=== PATIENT | female | born 1950 | race African-American/Black ===

== ENCOUNTER 2018-02-06 14:15 | Emergency (ER) | payer BC ==
[2018-02-06] MEDS ORDERED: DIPHTH,PERTUSS(ACELL),TET 0.5 ML DISP.SYRIN IM ONE (14:20)
--- NOTE | 2018-02-06 14:20 | PDOC ---
Rapid Medical Evaluation Chief Complaint: Injury Time Seen by Provider: 02/06/18 14:18 Medical Evaluation: Allergies Allergy/AdvReac Type Severity Reaction Status Date / Time lisinopril Allergy Swelling Verified 02/15/12 14:10 metformin Allergy Vomiting Verified 02/15/12 14:10 02/06/18 14:19 67 year old female with IDDM, HTN who cut her left 2nd finger while cooking just prior to arrival. On baby ASA, no other antiplatelets/anticoagulants. -Boostrix -To FT for further evaluation 02/06/18 14:20 Discharge Disposition - Referrals Referrals: Prabhjot Faulkner MD [Primary Care Provider] - - Patient Instructions - Post Discharge Activity
[2018-02-06 14:21] VITALS: BP 160/79; PULSE 100; TEMP 98; BMI 33.9
--- NOTE | 2018-02-06 14:29 | PDOC ---
History of Present Illness - General Chief Complaint: Injury Stated Complaint: LEFT HAND INJURY Time Seen by Provider: 02/06/18 14:18 History Source: Patient Exam Limitations: No Limitations - History of Present Illness Initial Comments: 02/06/18 14:37 Pt. is a 67 y/o F, PMH IDDM, HTN, who presents to the ED with a cut to her L second finger. Pt. states that she was cutting salmon when the knife slipped and cut her finger. She was concerned that she needed stitches. She does not remember the date of her last tetanus shot. Denies numbness and tingling, weakness to the finger, decreased ROM. Past History - Travel Traveled outside of the country in the last 30 days: No Close contact w/someone who was outside of country & ill: No - Past Medical History Allergies/Adverse Reactions: Allergies Allergy/AdvReac Type Severity Reaction Status Date / Time lisinopril Allergy Swelling Verified 02/15/12 14:10 metformin Allergy Vomiting Verified 02/15/12 14:10 Home Medications: Ambulatory Orders Amlodipine Besylate [Norvasc] 10 mg PO DAILY 02/15/12 Aspirin [Aspirin EC] 81 mg PO DAILY 02/15/12 Metoprolol Tartrate [Lopressor -] 75 mg PO DAILY 02/15/12 Sitagliptin Phosphate [Januvia] 100 mg PO DAILY 02/15/12 Insulin Detemir [Levemir Flextouch] 100 unit SQ ASDIR 02/06/18 Insulin Lispro [Humalog] 100 unit SQ ASDIR 02/06/18 COPD: No Diabetes: Yes Disorders: Yes HTN: Yes - Immunization History Immunization Up to Date: Yes - Suicide/Smoking/Psychosocial Hx Smoking Status: No Smoking History: Never smoked Number of Cigarettes Smoked Daily: 0 Hx Alcohol Use: No Drug/Substance Use Hx: No Review of Systems - Review of Systems Able to Perform ROS?: Yes Is the patient limited Italian proficient: No *Physical Exam - Vital Signs Last Vital Signs Temp Pulse Resp BP Pulse Ox 98.0 F 100 H 20 160/79 100 02/06/18 14:18 02/06/18 14:18 02/06/18 14:18 02/06/18 14:18 02/06/18 14:18 - Physical Exam Comments: 02/08/18 11:30 Well developed, well nourished. Awake and alert. No acute distress. HEENT: Normocephalic, atraumatic. PERRLA, EOMI. No conjunctival pallor. Sclera are non- icteric. Moist mucous membranes. Oropharynx is clear. NECK: Supple. Full ROM. No JVD. Carotid pulses 2+ and symmetric, without bruits. No thyromegaly. No lymphadenopathy. CARDIOVASCULAR: Regular rate and rhythm. No murmurs, rubs, or gallops. Distal pulses are 2+ and symmetric. PULMONARY: No evidence of respiratory distress. Lungs clear to auscultation bilaterally. No wheezing, rales or rhonchi. ABDOMINAL: Soft. Non-tender. Non-distended. No rebound or guarding. No organomegaly. Normoactive bowel sounds. MUSCULOSKELETAL Normal range of motion at all joints. No bony deformities or tenderness. No CVA tenderness. EXTREMITIES: No cyanosis. No clubbing. No edema. No calf tenderness. SKIN: Warm and dry. Normal capillary refill. No rashes. No jaundice. NEUROLOGICAL: Alert, awake, appropriate. Cranial nerves 2-12 intact. No deficits to light touch and temperature in face, upper extremities and lower extremities. No motor deficits in the in face, upper extremities and lower extremities. Normoreflexic in the upper and lower extremities. Normal speech. Toes are down- going bilaterally. Gait is normal without ataxia. PSYCHIATRIC: Cooperative. Good eye contact. Appropriate mood and affect. Procedures - Laceration/Wound Repair Left Distal 2nd digit Wound Length: 2.6 to 5.0 cm Wound Explored: clean Wound's Depth, Shape: superficial Irrigated w/ Saline: Yes Betadine Prep: Yes Anesthesia: 1% Lidocaine *DC/Admit/Observation/Transfer Diagnosis at time of Disposition: Laceration - Discharge Dispostion Disposition: HOME Condition at time of disposition: Stable Admit: No - Referrals Referrals: Prabhjot Faulkner MD [Primary Care Provider] - - Patient Instructions Printed Discharge Instructions: DI for Laceration Repair Additional Instructions: You had your cut repaired today. You had stitches placed. These need to come out in 7-10 days. Please return to the emergency department to have your stitches removed. Please keep the hand clean and dry. Do not soak it in water. Wear a glove when showering or washing dishes. You may put bacitracin on the site once a day. Your tetanus shot was updated today. Return to the emergency department sooner if you have signs of infection including fevers, redness or discharge from the site, or have any changes in your symptoms. - Post Discharge Activity
== END 2018-02-06 15:37 | disposition home or self-care (01) ==
LOC: JERFT 14:15
PROC: 3E0234Z Introduction of Serum, Toxoid and Vaccine into Muscle, Percutaneous Approach (ICD-10-PCS; principal; 2018-02-06)
PROC: 0HQGXZZ Repair Left Hand Skin, External Approach (ICD-10-PCS; 2018-02-06)
DX: S61.211A Laceration without foreign body of left index finger without damage to nail, initial encounter (principal); W26.0XXA Contact with knife, initial encounter; Y93.G3 Activity, cooking and baking; Y92.030 Kitchen in apartment as the place of occurrence of the external cause; Y99.8 Other external cause status; I10 Essential (primary) hypertension; E11.9 Type 2 diabetes mellitus without complications; Z79.4 Long term (current) use of insulin; Z79.84 Long term (current) use of oral hypoglycemic drugs; Z79.82 Long term (current) use of aspirin
CPT/HCPCS: 12001; 90471; 90715; 99281-25

== ENCOUNTER 2018-02-13 11:50 | Emergency (ER) | payer BC ==
[2018-02-13 12:01] VITALS: BP 149/70; PULSE 94; TEMP 98.5; BMI 33.9
--- NOTE | 2018-02-13 14:17 | PDOC ---
Suture Removal/Wound Check HPI - History of Present Illness History Source: Yes: Patient Exam Limitations: Yes: No Limitations - Onset of Previous Treatment Comment:: 02/13/18 14:18 The patient is a 67-year-old female, with a significant past medical history of IDDM, HTN, who presents to the ED for suture removal today. The patient visited the ED on 02/06 after sustaining a cut to her left second digit while cutting salmon. Six sutures were removed and dermabond was applied to the area; wound appears to be healing well. The patient denies having any other symptoms or injuries at this time. Allergies: glipizide, metformin, and lisinopril Social History: No reported tobacco, alcohol, or drug use Surgical History: None reported PCP: Dr. Prabhjot Faulkner <Beata Chaidez - Last Filed: 02/13/18 14:22> - History of Present Illness History Source: Yes: Patient Exam Limitations: Yes: No Limitations Treated at: [facility] Date of Last ED visit: 02/06/18 - Previous ED Treatment Type of procedure performed on last visit: Yes: Laceration Repair Tetanus Immunization: Yes: Up to Date Antibiotics Prescribed: No <Janel Montez - Last Filed: 02/13/18 14:33> - History of Present Illness Chief Complaint: Suture/Staple Removal(Here) Stated Complaint: SUTURE REMOVAL Time Seen by Provider: 02/13/18 13:43 Past History <Beata Chaidez - Last Filed: 02/13/18 14:22> - Past Medical History COPD: No Diabetes: Yes Disorders: Yes HTN: Yes - Immunization History Immunization Up to Date: Yes - Suicide/Smoking/Psychosocial Hx Smoking Status: No Smoking History: Never smoked Number of Cigarettes Smoked Daily: 0 Information on smoking cessation initiated: No Hx Alcohol Use: No Drug/Substance Use Hx: No Substance Use Type: None <Janel Montez - Last Filed: 02/13/18 14:33> - Past Medical History Allergies/Adverse Reactions: Allergies Allergy/AdvReac Type Severity Reaction Status Date / Time glipizide Allergy Verified 02/13/18 11:55 lisinopril Allergy Swelling Verified 02/13/18 11:55 metformin Allergy Vomiting Verified 02/13/18 11:55 Home Medications: Ambulatory Orders Amlodipine Besylate [Norvasc] 10 mg PO DAILY 02/15/12 Aspirin [Aspirin EC] 81 mg PO DAILY 02/15/12 Metoprolol Tartrate [Lopressor -] 75 mg PO DAILY 02/15/12 Sitagliptin Phosphate [Januvia] 100 mg PO DAILY 02/15/12 Insulin Detemir [Levemir Flextouch] 100 unit SQ ASDIR 02/06/18 Insulin Lispro [Humalog] 100 unit SQ ASDIR 02/06/18 Suture Removal/Wound Check PE - Physical Exam Comments: 02/13/18 14:20 GENERAL: Well-appearing, well-nourished. No apparent distress. HEENT: Normocephalic, atraumatic. PERRL, EOM intact. CARDIOVASCULAR: Normal S1, S2. Regular rate and rhythm. PULMONARY: Clear to auscultation bilaterally. EXTREMITIES: Normal ROM in all four extremities. No gross deformities. SKIN: Warm, dry. LEFT SECOND DIGIT: Wound at edges appeared to be healed well. No evidence of infection. No erythema or edema. No dehiscence. NEUROLOGICAL: No focal neurological deficits. <Beata Chaidez - Last Filed: 02/13/18 14:22> *Review of Systems - Review of Systems Able to Perform ROS?: Yes Comments:: 02/13/18 14:20 CONSTITUTIONAL: Absent: fever, no chills, no fatigue EYES: Absent: visual changes ENT: Absent: ear pain, no sore throat CARDIOVASCULAR: Absent: chest pain, no palpitations RESPIRATORY: Absent: cough, no SOB GI: Absent: abdominal pain, no nausea, no vomiting, no constipation, no diarrhea GENITOURINARY: Absent: dysuria, no frequency, no hematuria MUSKULOSKELETAL: Absent: back pain, no arthralgia, no myalgia SKIN: Present: sutures in place on left second digit Absent: rash NEURO: Absent: headache <Beata Chaidez - Last Filed: 02/13/18 14:22> Medical Decision Making - Medical Decision Making 02/13/18 14:32 A/P:: Patient here for suture removal there is no erythema edema secondary signs of infection. 4 sutures removed without difficulty, patient to follow-up as needed. <Janel Montez - Last Filed: 02/13/18 14:33> *DC/Admit/Observation/Transfer - Attestations Scribe Attestion: 02/13/18 14:21 Documentation prepared by Beata Chaidez, acting as medical resident for Janel Montez NP. <Beata Chaidez - Last Filed: 02/13/18 14:22> - Discharge Dispostion Admit: No <Janel Montez - Last Filed: 02/13/18 14:33> Diagnosis at time of Disposition: Visit for suture removal - Discharge Dispostion Disposition: HOME Condition at time of disposition: Stable - Referrals Referrals: Prabhjot Faulkner MD [Primary Care Provider] - - Patient Instructions Additional Instructions: PLease try to keep area as dry as possible, follow up as needed. If any increased redness swelling or signs of infection return to ER - Post Discharge Activity Forms/Work/School Notes: Back to Work
== END 2018-02-13 15:01 | disposition home or self-care (01) ==
LOC: JERFT 11:50
DX: Z48.02 Encounter for removal of sutures (principal); I10 Essential (primary) hypertension; E11.9 Type 2 diabetes mellitus without complications; Z79.4 Long term (current) use of insulin; Z79.84 Long term (current) use of oral hypoglycemic drugs
CPT/HCPCS: 99281-25

== ENCOUNTER 2023-07-01 11:14 | Inpatient (IN) | payer BC ==
[2023-07-01 11:23] VITALS: BMI 33.9
[2023-07-01] MEDS ORDERED: SODIUM CHLORIDE 2,858 ML IV ONE (12:44)
[2023-07-01] MEDS ORDERED: CEFTRIAXONE 1,000 MG in DEXTROSE 5%-WATER - 50 ML IVPB ONE (12:46)
[2023-07-01 13:46] LABS: BASO % 1.1 % (0-2.0); EOS % 1.1 % (0-4.5); HEMATOCRIT 44.9 % (32.4-45.2); HEMOGLOBIN 14.8 GM/dL (10.7-15.3); LYMPH % 21.9 % (8-40); MCH 26.6 pg (25.7-33.7); MEAN CELL VOLUME 80.8 fl (80-96); MEAN PLT VOLUME 8.5 fl (7.5-11.1); MONO % 12.8 % (3.8-10.2); NEUT % 63.1 % (42.8-82.8); PLATELET COUNT 344 10^3/uL (134-434); RBC 5.56 M/mm3 (3.60-5.2); RDW 15.7 % (11.6-15.6)
[2023-07-01 14:00] LABS: INR 1.07 (0.83-1.09); PROTHROMBIN TIME (PATIENT) 12.4 SEC (9.7-13.0)
[2023-07-01 14:02] LABS: ACTIVATED PTT 29.9 SECONDS (25.2-36.5)
[2023-07-01 14:03] LABS: VENOUS BASE EXCESS 1.3 mmol/L (-2-2); VENOUS O2 SATURATION 65.8 % (70-80); VENOUS PCO2 41.8 mmHg (38-52); VENOUS PH 7.413 (7.310-7.410)
[2023-07-01 14:43] LABS: POTASSIUM 4.2 mmol/L (3.5-5.1)
[2023-07-01 14:44] LABS: CALCIUM 10.5 mg/dL (8.5-10.1)
[2023-07-01 14:45] LABS: ALBUMIN 3.4 g/dl (3.4-5.0)
[2023-07-01 14:47] LABS: BLOOD UREA NITROGEN 19.3 mg/dL (7-18)
[2023-07-01 14:48] LABS: CREATININE 0.9 mg/dL (0.55-1.3)
[2023-07-01 14:50] LABS: TOT PROT 7.4 g/dl (6.4-8.2)
[2023-07-01 14:51] LABS: BILIRUBIN,TOTAL 0.7 mg/dL (0.2-1)
[2023-07-01] MEDS ORDERED: CEFTRIAXONE 1 GM/50 ML BAG ONE (15:31)
[2023-07-01 16:07] LABS: URINE APPEARANCE CLEAR; URINE BILIRUBIN NEGATIVE (NEGATIVE); URINE COLOR YELLOW; URINE GLUCOSE (UA) NEGATIVE (NEGATIVE); URINE KETONE 1+ (NEGATIVE); URINE LEUK ESTERASE NEGATIVE (NEGATIVE); URINE NITRITE NEGATIVE (NEGATIVE); URINE PROTEIN NEGATIVE (NEGATIVE)
[2023-07-01] MEDS ORDERED: DOCUSATE SODIUM 100 MG CAPSULE (FP) PO PRN (20:19)
[2023-07-01] MEDS: INSULIN SLIDING SCALE (NOVOLOG) 1 VIAL SQ SCH (23:08)
[2023-07-02] MEDS ORDERED: ACETAMINOPHEN 1000 MG/100 ML BAG IVPB PRN (02:56)
[2023-07-02] MEDS: INSULIN SLIDING SCALE (NOVOLOG) 1 VIAL SQ SCH ×4 (06:06→21:24)
[2023-07-02 10:17] LABS: BASO % 0.8 % (0-2.0); EOS % 1.9 % (0-4.5); HEMATOCRIT 40.7 % (32.4-45.2); MCH 26.4 pg (25.7-33.7); MEAN CELL VOLUME 82.4 fl (80-96); MEAN PLT VOLUME 8.4 fl (7.5-11.1); NEUT % 66.3 % (42.8-82.8); PLATELET COUNT 294 10^3/uL (134-434); RBC 4.93 M/mm3 (3.60-5.2); RDW 15.6 % (11.6-15.6); WHITE BLOOD COUNT 6.2 K/mm3 (4.0-10.0)
[2023-07-02 10:34] LABS: POTASSIUM 4.1 mmol/L (3.5-5.1)
[2023-07-02] MEDS: METOPROLOL TARTRATE 25 MG TABLET (FP) PO SCH (10:34)
[2023-07-02] MEDS: HYDROCHLOROTHIAZIDE 25 MG TABLET (FP) PO SCH (10:34)
[2023-07-02] MEDS: ASPIRIN COATED 81 MG TABLET.EC PO SCH (10:34)
[2023-07-02] MEDS: PREGABALIN 75 MG CAPSULE PO SCH ×2 (10:34→21:24)
[2023-07-02 10:38] LABS: CALCIUM 9.4 mg/dL (8.5-10.1)
[2023-07-02 10:39] LABS: BLOOD UREA NITROGEN 10.8 mg/dL (7-18); MAGNESIUM 1.8 mg/dL (1.8-2.4)
[2023-07-02 10:42] LABS: CREATININE 0.6 mg/dL (0.55-1.3); PHOSPHOROUS 3.9 mg/dL (2.5-4.9)
[2023-07-02] MEDS: INSULIN (LEVEMIR) 100 UNITS/ML UNITS SQ SCH (21:25)
[2023-07-03] MEDS: INSULIN SLIDING SCALE (NOVOLOG) 1 VIAL SQ SCH ×4 (06:06→21:42)
[2023-07-03] MEDS: INSULIN (LEVEMIR) 100 UNITS/ML UNITS SQ SCH ×2 (06:40→21:36)
[2023-07-03] MEDS: METOPROLOL TARTRATE 25 MG TABLET (FP) PO SCH (10:18)
[2023-07-03] MEDS: ASPIRIN COATED 81 MG TABLET.EC PO SCH (10:18)
[2023-07-03] MEDS: PREGABALIN 75 MG CAPSULE PO SCH ×2 (10:18→21:36)
[2023-07-03] MEDS: HYDROCHLOROTHIAZIDE 25 MG TABLET (FP) PO SCH (10:18)
[2023-07-03] MEDS ORDERED: INSULIN (LEVEMIR) 100 UNITS/ML UNITS SQ ONE (21:21)
[2023-07-03] MEDS: HEPARIN NA (PORCINE) 5,000 UNITS/ML 1ML VIAL SQ SCH (21:36)
[2023-07-04] MEDS: INSULIN (LEVEMIR) 100 UNITS/ML UNITS SQ SCH ×2 (06:06→21:50)
[2023-07-04] MEDS: INSULIN SLIDING SCALE (NOVOLOG) 1 VIAL SQ SCH ×4 (06:06→21:52)
[2023-07-04] MEDS: METOPROLOL TARTRATE 25 MG TABLET (FP) PO SCH (10:52)
[2023-07-04] MEDS: PREGABALIN 75 MG CAPSULE PO SCH ×2 (10:52→21:49)
[2023-07-04] MEDS: ASPIRIN COATED 81 MG TABLET.EC PO SCH (10:53)
[2023-07-04] MEDS: HYDROCHLOROTHIAZIDE 25 MG TABLET (FP) PO SCH (10:53)
[2023-07-04] MEDS: HEPARIN NA (PORCINE) 5,000 UNITS/ML 1ML VIAL SQ SCH ×2 (10:53→21:49)
[2023-07-05] MEDS: INSULIN SLIDING SCALE (NOVOLOG) 1 VIAL SQ SCH ×4 (06:22→21:42)
[2023-07-05] MEDS: INSULIN (LEVEMIR) 100 UNITS/ML UNITS SQ SCH ×2 (06:22→21:41)
[2023-07-05] MEDS: ASPIRIN COATED 81 MG TABLET.EC PO SCH (09:19)
[2023-07-05] MEDS: HEPARIN NA (PORCINE) 5,000 UNITS/ML 1ML VIAL SQ SCH ×2 (09:20→21:40)
[2023-07-05] MEDS: METOPROLOL TARTRATE 25 MG TABLET (FP) PO SCH (09:20)
[2023-07-05] MEDS: HYDROCHLOROTHIAZIDE 25 MG TABLET (FP) PO SCH (09:20)
[2023-07-05] MEDS: PREGABALIN 75 MG CAPSULE PO SCH ×2 (09:20→21:40)
[2023-07-06] MEDS: INSULIN SLIDING SCALE (NOVOLOG) 1 VIAL SQ SCH ×4 (06:52→22:01)
[2023-07-06] MEDS: INSULIN (LEVEMIR) 100 UNITS/ML UNITS SQ SCH ×2 (06:53→22:00)
[2023-07-06] MEDS: HEPARIN NA (PORCINE) 5,000 UNITS/ML 1ML VIAL SQ SCH ×2 (10:46→21:59)
[2023-07-06] MEDS: HYDROCHLOROTHIAZIDE 25 MG TABLET (FP) PO SCH (10:46)
[2023-07-06] MEDS: POLYETHYLENE GLYCOL (HEALTHYLAX) 3350 17 GM PACKET PO SCH (10:46)
[2023-07-06] MEDS: ASPIRIN COATED 81 MG TABLET.EC PO SCH (10:46)
[2023-07-06] MEDS: METOPROLOL TARTRATE 25 MG TABLET (FP) PO SCH (10:46)
[2023-07-06] MEDS: PREGABALIN 75 MG CAPSULE PO SCH ×2 (10:46→22:02)
[2023-07-06] MEDS: ACETAMINOPHEN 325 MG TABLET (FP) PO PRN (23:07)
[2023-07-07] MEDS: INSULIN SLIDING SCALE (NOVOLOG) 1 VIAL SQ SCH ×4 (06:28→21:14)
[2023-07-07] MEDS: INSULIN (LEVEMIR) 100 UNITS/ML UNITS SQ SCH ×2 (06:32→21:14)
[2023-07-07] MEDS ORDERED: INSULIN (NOVOLOG) ASPART 100 UNITS/ML 10ML VIAL ONE (09:01)
[2023-07-07] MEDS: PREGABALIN 75 MG CAPSULE PO SCH ×2 (10:32→21:15)
[2023-07-07] MEDS: HYDROCHLOROTHIAZIDE 25 MG TABLET (FP) PO SCH (10:32)
[2023-07-07] MEDS: ASPIRIN COATED 81 MG TABLET.EC PO SCH (10:32)
[2023-07-07] MEDS: METOPROLOL TARTRATE 25 MG TABLET (FP) PO SCH (10:32)
[2023-07-07] MEDS: POLYETHYLENE GLYCOL (HEALTHYLAX) 3350 17 GM PACKET PO SCH (10:32)
[2023-07-07] MEDS: HEPARIN NA (PORCINE) 5,000 UNITS/ML 1ML VIAL SQ SCH ×2 (10:33→21:14)
[2023-07-08] MEDS: ACETAMINOPHEN 325 MG TABLET (FP) PO PRN (00:09)
[2023-07-08] MEDS: INSULIN SLIDING SCALE (NOVOLOG) 1 VIAL SQ SCH ×4 (06:14→21:53)
[2023-07-08] MEDS: INSULIN (LEVEMIR) 100 UNITS/ML UNITS SQ SCH ×2 (06:14→21:48)
[2023-07-08] MEDS: HYDROCHLOROTHIAZIDE 25 MG TABLET (FP) PO SCH (09:52)
[2023-07-08] MEDS: ASPIRIN COATED 81 MG TABLET.EC PO SCH (09:52)
[2023-07-08] MEDS: PREGABALIN 75 MG CAPSULE PO SCH ×2 (09:52→21:48)
[2023-07-08] MEDS: HEPARIN NA (PORCINE) 5,000 UNITS/ML 1ML VIAL SQ SCH ×2 (09:52→21:47)
[2023-07-08] MEDS: POLYETHYLENE GLYCOL (HEALTHYLAX) 3350 17 GM PACKET PO SCH (09:52)
[2023-07-08] MEDS: METOPROLOL TARTRATE 25 MG TABLET (FP) PO SCH (09:52)
[2023-07-09] MEDS: INSULIN SLIDING SCALE (NOVOLOG) 1 VIAL SQ SCH ×4 (06:38→21:38)
[2023-07-09] MEDS: INSULIN (LEVEMIR) 100 UNITS/ML UNITS SQ SCH ×2 (06:38→21:36)
[2023-07-09] MEDS: HYDROCHLOROTHIAZIDE 25 MG TABLET (FP) PO SCH (09:34)
[2023-07-09] MEDS: ASPIRIN COATED 81 MG TABLET.EC PO SCH (09:34)
[2023-07-09] MEDS: POLYETHYLENE GLYCOL (HEALTHYLAX) 3350 17 GM PACKET PO SCH (09:35)
[2023-07-09] MEDS: METOPROLOL TARTRATE 25 MG TABLET (FP) PO SCH (09:35)
[2023-07-09] MEDS: HEPARIN NA (PORCINE) 5,000 UNITS/ML 1ML VIAL SQ SCH ×2 (09:35→21:35)
[2023-07-09] MEDS ORDERED: INSULIN (NOVOLOG) ASPART 100 UNITS/ML 10ML VIAL ONE ×3 (11:33→21:16)
[2023-07-10] MEDS: ACETAMINOPHEN 325 MG TABLET (FP) PO PRN (01:40)
[2023-07-10] MEDS: INSULIN (LEVEMIR) 100 UNITS/ML UNITS SQ SCH ×2 (06:08→21:46)
[2023-07-10] MEDS: INSULIN SLIDING SCALE (NOVOLOG) 1 VIAL SQ SCH ×4 (06:08→21:48)
[2023-07-10 10:01] VITALS: RESP 18
[2023-07-10] MEDS: ASPIRIN COATED 81 MG TABLET.EC PO SCH (11:14)
[2023-07-10] MEDS: POLYETHYLENE GLYCOL (HEALTHYLAX) 3350 17 GM PACKET PO SCH (11:14)
[2023-07-10] MEDS: METOPROLOL TARTRATE 25 MG TABLET (FP) PO SCH (11:14)
[2023-07-10] MEDS: HYDROCHLOROTHIAZIDE 25 MG TABLET (FP) PO SCH (11:14)
[2023-07-10] MEDS: HEPARIN NA (PORCINE) 5,000 UNITS/ML 1ML VIAL SQ SCH (11:14)
[2023-07-10 15:14] LABS: BASO % 1.5 % (0-2.0); EOS % 3.5 % (0-4.5); HEMATOCRIT 42.7 % (32.4-45.2); HEMOGLOBIN 13.7 GM/dL (10.7-15.3); LYMPH % 26.8 % (8-40); MCH 26.7 pg (25.7-33.7); MCHC 32.1 g/dl (32.0-36.0); MONO % 12.9 % (3.8-10.2); NEUT % 55.3 % (42.8-82.8); PLATELET COUNT 384 10^3/uL (134-434); RBC 5.15 M/mm3 (3.60-5.2); RDW 15.5 % (11.6-15.6); WHITE BLOOD COUNT 6.5 K/mm3 (4.0-10.0)
[2023-07-10 15:37] LABS: POTASSIUM 4.3 mmol/L (3.5-5.1)
[2023-07-10 15:39] LABS: ALBUMIN 3.1 g/dl (3.4-5.0)
[2023-07-10 15:40] LABS: BLOOD UREA NITROGEN 17.1 mg/dL (7-18)
[2023-07-10 15:42] LABS: CREATININE 0.9 mg/dL (0.55-1.3)
[2023-07-10 15:44] LABS: BILIRUBIN,TOTAL 0.3 mg/dL (0.2-1)
[2023-07-11] MEDS: ACETAMINOPHEN 325 MG TABLET (FP) PO PRN (03:24)
[2023-07-11] MEDS: INSULIN (LEVEMIR) 100 UNITS/ML UNITS SQ SCH ×2 (06:33→21:50)
[2023-07-11] MEDS: INSULIN SLIDING SCALE (NOVOLOG) 1 VIAL SQ SCH ×4 (06:33→21:51)
[2023-07-11] MEDS: METOPROLOL TARTRATE 25 MG TABLET (FP) PO SCH (10:22)
[2023-07-11] MEDS: ASPIRIN COATED 81 MG TABLET.EC PO SCH (10:23)
[2023-07-11] MEDS: HYDROCHLOROTHIAZIDE 25 MG TABLET (FP) PO SCH (10:23)
[2023-07-11] MEDS: POLYETHYLENE GLYCOL (HEALTHYLAX) 3350 17 GM PACKET PO SCH (10:24)
[2023-07-11] MEDS: CLOTRIMAZOLE 1% CREAM TP SCH ×2 (11:46→22:55)
[2023-07-11] MEDS ORDERED: INSULIN (NOVOLOG) ASPART 100 UNITS/ML 10ML VIAL ONE (21:09)
[2023-07-12] MEDS: ACETAMINOPHEN 325 MG TABLET (FP) PO PRN (00:49)
[2023-07-12 05:40] VITALS: BP 134/74; PULSE 76; TEMP 98.3
[2023-07-12] MEDS: INSULIN (LEVEMIR) 100 UNITS/ML UNITS SQ SCH (06:07)
[2023-07-12] MEDS: INSULIN SLIDING SCALE (NOVOLOG) 1 VIAL SQ SCH (06:07)
[2023-07-12] MEDS: HYDROCHLOROTHIAZIDE 25 MG TABLET (FP) PO SCH (09:59)
[2023-07-12] MEDS: METOPROLOL TARTRATE 25 MG TABLET (FP) PO SCH (09:59)
[2023-07-12] MEDS: ASPIRIN COATED 81 MG TABLET.EC PO SCH (09:59)
[2023-07-12] MEDS: POLYETHYLENE GLYCOL (HEALTHYLAX) 3350 17 GM PACKET PO SCH ×2 (10:00→10:01)
[2023-07-12] MEDS: CLOTRIMAZOLE 1% CREAM TP SCH (10:00)
== END 2023-07-12 11:21 | DRG 556 ==
LOC: JER 11:14 → JERBED 17:35 → J6S 22:20 → OBSVTOIN 07-03 11:54
PROVIDERS: ADMIT Internal Medicine; ATTEND Internal Medicine
DX: R29.898 Other symptoms and signs involving the musculoskeletal system (principal); I10 Essential (primary) hypertension; E78.5 Hyperlipidemia, unspecified; R26.81 Unsteadiness on feet; E11.40 Type 2 diabetes mellitus with diabetic neuropathy, unspecified; R59.1 Generalized enlarged lymph nodes; R53.1 Weakness; H05.89 Other disorders of orbit; W01.0XXA Fall on same level from slipping, tripping and stumbling without subsequent striking against object, initial encounter; Y93.89 Activity, other specified; Y92.230 Patient room in hospital as the place of occurrence of the external cause; Y99.8 Other external cause status
CPT/HCPCS: 0241U-QW; 36415; 70450-TC; 71045-TC-FY; 71275-TC; 72141-TC; 72146-TC; 72148-TC; 73560-TC-LT-FY; 80048; 80053; 80061; 81003; 82550; 82553; 82803; 82962; 83036; 83605; 83615; 83735; 84100; 84484; 85025; 85610; 85730; 86850; 86900; 86901; 87040; 87086; 93005; 93010; 93970-TC; 97116-GP; 99285-25; G0378; J1644; Q9967

== ENCOUNTER 2024-09-06 20:51 | Emergency (ER) | payer OTHER ==
[2024-09-06 21:17] VITALS: BP 152/85; PULSE 94; RESP 18; TEMP 97.8; BMI 29.0
[2024-09-07] MEDS: MINERAL OIL ENEMA 133 ML ENEMA RC ONE (01:05)
[2024-09-07] MEDS ORDERED: MAGNESIUM CITRATE 300 ML BOTTLE ONE (02:44)
[2024-09-07] MEDS: MAGNESIUM CITRATE 300 ML BOTTLE PO ONE (02:47)
== END 2024-09-07 03:21 | disposition home or self-care (01) ==
LOC: JER 20:51
DX: K59.00 Constipation, unspecified (principal); R11.0 Nausea
CPT/HCPCS: 74019-TC-FY; 99283-25